=== PATIENT | male | born 1945 | race Caucasian/White ===

== ENCOUNTER 2017-10-17 07:32 | Day surgery (SDC) | payer OTHER, MEDICARE ==
[2017-10-14 11:14] VITALS: BMI 28.8
[2017-10-17] MEDS ORDERED: PROPOFOL 20 ML ONE ×2 (07:41)
[2017-10-17 10:21] VITALS: TEMP 98.2
[2017-10-17 10:30] VITALS: BP 110/62; PULSE 58
--- NOTE | 2017-10-18 14:26 | PATH ---
Surgical Pathology Report Patient Name: RADHA TORREZ [facility]. Rec. #: [id number] /Age/Gender: 1945 (Age: 72) / M Account: [id number] Location: [facility] Taken: 10/17/2017 Received: 10/17/2017 Reported: 10/18/2017 Physicians: Milton Galvan M.D. Specimen(s) Received A: BX DUODENUM B: BX ANTRUM C: DISTAL ESOPHAGUS R/O BARRETS ESOPHAGUS Clinical History GERD Postoperative diagnosis: Gastritis, duodenitis, rule out celiac, rule out Rincon's esophagus Final Diagnosis A. DUODENUM, BIOPSY: DUODENAL MUCOSA WITH NO PATHOLOGIC FINDINGS. Note: Features suggestive of celiac disease are not identified in this biopsy. B. ANTRUM, BIOPSY: MILD CHRONIC ACTIVE GASTRITIS. IMMUNOSTAIN IS NEGATIVE FOR H. PYLORI ORGANISMS ARE C. DISTAL ESOPHAGUS, BIOPSY: ESOPHAGEAL (SQUAMOUS) MUCOSA WITH NO SIGNIFICANT PATHOLOGIC FINDINGS. NO COLUMNAR EPITHELIUM/INTESTINAL METAPLASIA IS IDENTIFIED. Electronically Signed Radhika Cook M.D. Gross Description A. Received in formalin, labeled "duodenum" are 2 clarke, irregular portions of soft tissue measuring 0.3 and 0.4 cm. in greatest dimension. The specimens are submitted in toto in one cassette. B. Received in formalin, labeled "antrum" are 2 clarke, irregular portions of soft tissue averaging 0.3 cm. in greatest dimension. The specimens are submitted in toto in one cassette. C. Received in formalin, labeled "distal esophagus" is a clarke, irregular portion of soft tissue measuring 0.2 cm. in greatest dimension. The specimen is submitted in toto in one cassette. /10/17/2017 [facility]10/17/2017
== END 2017-10-17 10:33 | disposition home or self-care (01) ==
LOC: FASU-ENDO 07:32
PROVIDERS: ATTEND Internal Medicine Gastroenterology
PROC: 0DB48ZX Excision of Esophagogastric Junction, Via Natural or Artificial Opening Endoscopic, Diagnostic (ICD-10-PCS; 2017-10-17)
PROC: 0DB98ZX Excision of Duodenum, Via Natural or Artificial Opening Endoscopic, Diagnostic (ICD-10-PCS; principal; 2017-10-17 09:46)
PROC: 0DB68ZX Excision of Stomach, Via Natural or Artificial Opening Endoscopic, Diagnostic (ICD-10-PCS; 2017-10-17 09:46)
DX: K29.50 Unspecified chronic gastritis without bleeding (principal); R07.89 Other chest pain
CPT/HCPCS: 88305-TC; 88342-TC